=== PATIENT | female | born 1980 | race Caucasian/White ===

== ENCOUNTER 2021-08-09 11:38 | Emergency (ER) | payer BC, OTHER ==
[~2021-08-09] VITALS: Ht 172.7 cm; Wt 109.8 kg
[2021-08-09] MEDS ORDERED: HYDROcodone-ACET 10/325MG TAB PO ONE (11:45)
[2021-08-09] MEDS ORDERED: LIDOCAINE 1%HCL (LOCAL ANESTH) 10 ML MDV ONE (14:01)
[2021-08-09] MEDS ORDERED: IBUP800T27 PO (14:46)
[2021-08-09] MEDS ORDERED: CEPH-322 PO (14:46)
[2021-08-09 15:45] VITALS: BP 138/71
== END 2021-08-09 16:14 | disposition home or self-care (01) ==
LOC: EDBD 11:38 → ER 11:38
DX: S62.502A Fracture of unspecified phalanx of left thumb, initial encounter for closed fracture (principal); Z98.51 Tubal ligation status; V43.62XA Car passenger injured in collision with other type car in traffic accident, initial encounter; Y93.89 Activity, other specified; Y92.410 Unspecified street and highway as the place of occurrence of the external cause; Y99.8 Other external cause status
CPT/HCPCS: 73030; 73130; 99284; J2001